=== PATIENT | female | born 1980 | race Caucasian/White ===

== ENCOUNTER 2020-07-04 20:01 | Emergency (ER) | payer BC ==
[~2020-07-04] VITALS: Ht 170.2 cm; Wt 90.9 kg
[~2020-07-04 20:01] MED LIST: MOTRIN 800800 MG/TAB PO; PERCOCET 325 MG1 TA2 PO; PRENATAL1 TA1 PO
[2020-07-04 20:02] VITALS: TEMP 98.5
[2020-07-04 21:12] LABS: BASO % 0.3 % (0.0-2.0); GRAN # 12.1 (1.4-6.5); GRAN % 84.7 % (42.2-75.2); HEMOGLOBIN 12.8 g/dl (12.5-16.0); LYMPH # 1.5 (1.2-3.4); LYMPH % 10.5 % (20.0-51.0); MEAN CELL VOLUME 85 fl (80.0-100.0); MEAN CORPUSCULAR HEMOGLOBIN 29 pg (27.0-31.0); MEAN CORPUSCULAR HGB CONC 35 g/dl (33.0-37.0); MONO # 0.6 (0.1-0.6); MONO % 4.2 % (1.7-9.3); PLATELET COUNT 261 K/mm3 (130-400); RED BLOOD COUNT 4.35 M/mm3 (4.10-5.30); REDCELL DISTRIBUTION WIDTH-CV 12.4 % (11.5-14.5)
[2020-07-04 21:15] VITALS: BP 124/84; PULSE 81
[2020-07-04 21:15] LABS: HEMATOCRIT 36.8 % (37.0-47.0)
[2020-07-04 21:24] LABS: ALANINE AMINOTRANSFERASE 47 U/L (4-34); ALBUMIN 4.2 gm/dL (3.5-5.0); ALKALINE PHOSPHATASE 76 U/L (50-136); AMYLASE 113 U/L (30-110); ANION GAP 13 mmol/L (7-16); AST,SGOT 130 U/L (15-37); BILIRUBIN,TOTAL 0.4 mg/dL (0.0-1.0); BLOOD UREA NITROGEN 9 mg/dL (7-17); CALCIUM 9.1 mg/dL (8.4-10.2); CARBON DIOXIDE 21 mmol/L (22-30); CHLORIDE 102 mmol/L (98-107); CREATININE, serum 0.73 (0.52-1.25); GLUCOSE 121 mg/dL (74-106); LIPASE 164 U/L (23-300); POTASSIUM 3.8 mmol/L (3.4-5.0); SODIUM 136 mmol/L (137-145); TOTAL PROTEIN 7.2 gm/dL (6.4-8.2)
[2020-07-04 21:35] LABS: TROPONIN-I < 0.012 ng/mL (0.000-0.035)
== END 2020-07-04 22:05 | disposition home or self-care (01) ==
LOC: COL.ER 20:01
PROVIDERS: Family Medicine
DX: R10.13 Epigastric pain (principal)

== ENCOUNTER → 2022-02-26 | Outpatient (CLI) | payer BC | LOC: MC.RAD 09:12 | DX: Z12.31 Encounter for screening mammogram for malignant neoplasm of breast (principal) ==